=== PATIENT | female | born 1995 | race Caucasian/White ===

== ENCOUNTER 2016-06-12 16:34 | Emergency (ER) | payer SELFPAY ==
[2016-06-12 18:04] VITALS: BP 135/67
--- NOTE | 2016-06-12 18:22 | UC ---
Throat Pain/Nasal Fernando HPI - HPI Summary HPI Summary: For about a week has been waking up with ST in the middle of the night, then it feels ok during the day. Describes discomfort as scratchy and dry, like she needs a drink. Came in today because pain did not go away during the day. Denies fever, cough, or mucus production. Has pain in mid/upper back with deep breaths. - History of Current Complaint Chief Complaint: UCRespiratory Stated Complaint: SORE THROAT Time Seen by Provider: 06/12/16 18:06 Hx Obtained From: Patient Hx Last Menstrual Period: 05/23 ?: No Onset/Duration: Gradual Onset, Lasting Days Severity: Mild Cough: None Associated Signs & Symptoms: Negative: Fever, Vomiting, Rash - Allergies/Home Medications Allergies/Adverse Reactions: Allergies Allergy/AdvReac Type Severity Reaction Status Date / Time No Known Allergies Allergy Verified 06/12/16 17:58 Home Medications: Home Medications Bcp 1 tab PO DAILY 06/12/16 [History] PMH/Surg Hx/FS Hx/Imm Hx Cardiovascular History Of: Denies: Cardiac Disorders, Hypertension, Deep Vein Thrombosis, Bleeding Disorders Respiratory History Of: Reports: Asthma GI/ History Of: Denies: Gastroesophageal Reflux, Ulcer, Kidney Stones Psychological History Of: Denies: Anxiety, Depression - Surgical History Surgical History: None - Family History Known Family History: Positive: Hypertension, Diabetes - Social History Lives: With Family Alcohol Use: None Substance Use Type: None Smoking Status (MU): Heavy Every Day Tobacco Smoker Type: Cigarettes Amount Used/How Often: 1/2 pack daily Have You Smoked in the Last Year: Yes When Did the Patient Quit Smoking/Using Tobacco: 07/2015 Household Exposure Type: Cigarettes - Immunization History Most Recent Influenza Vaccination: [id number] Vaccination Up to Date: Yes Review of Systems Constitutional: Negative Skin: Negative Eyes: Negative ENT: Sore Throat Respiratory: Negative Cardiovascular: Negative Gastrointestinal: Negative Genitourinary: Negative Motor: Negative Neurovascular: Negative Musculoskeletal: Negative Neurological: Negative Psychological: Negative All Other Systems Reviewed And Are Negative: Yes Physical Exam Triage Information Reviewed: Yes Appearance: Well-Appearing, No Pain Distress, Well-Nourished Vital Signs: Initial Vital Signs Temp 97.7 F 06/12/16 17:59 Pulse 89 06/12/16 17:59 Resp 16 06/12/16 17:59 BP 135/67 06/12/16 17:59 Pulse Ox 100 06/12/16 17:59 Vital Signs Reviewed: Yes Eye Exam: Normal Eyes: Positive: Conjunctiva Clear ENT Exam: Normal ENT: Positive: Normal ENT inspection, Hearing grossly normal, Pharynx normal, TMs normal Dental Exam: Normal Neck exam: Normal Neck: Positive: Supple, Nontender, No Lymphadenopathy Respiratory Exam: Normal Respiratory: Positive: Chest non-tender, Lungs clear, Normal breath sounds, No respiratory distress, No accessory muscle use Cardiovascular Exam: Normal Cardiovascular: Positive: RRR, No Murmur Musculoskeletal Exam: Normal Neurological Exam: Normal Psychological Exam: Normal Skin Exam: Normal Throat Pain/Nasal Course/Dx - Differential Dx/Diagnosis Provider Diagnoses: pharyngitis Discharge - Discharge Plan Condition: Stable Disposition: HOME Patient Education Materials: Pharyngitis (ED) Referrals: Constance Goetz PA [Primary Care Provider] - If Needed Additional Instructions: As we discussed, I suspect your back pain is muscular. Try taking ibuprofen before bed. The sore throat should go away with time, but it can take 2 weeks or more. Come back or see your primary care provider if you have severe or worsening symptoms.
== END 2016-06-12 18:31 | disposition home or self-care (01) ==
LOC: UCCORT 16:34
DX: J02.9 Acute pharyngitis, unspecified (principal); F17.210 Nicotine dependence, cigarettes, uncomplicated
CPT/HCPCS: 87651; 99211; G0463

== ENCOUNTER 2017-02-23 12:41 | Emergency (ER) | payer OTHER ==
[2017-02-23 13:04] VITALS: BP 124/67
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
== END 2017-02-23 13:46 | disposition short-term general hospital (02) ==
LOC: UCCORT 12:41
DX: T76.21XA Adult sexual abuse, suspected, initial encounter (principal); X58.XXXA Exposure to other specified factors, initial encounter; Y92.9 Unspecified place or not applicable; F17.210 Nicotine dependence, cigarettes, uncomplicated
CPT/HCPCS: 99212; G0463

== ENCOUNTER → 2019-02-12 13:55 | Emergency (ER) | payer SELFPAY | END | disposition home or self-care (01) | LOC: OHCORT 13:55 | DX: Z02.1 Encounter for pre-employment examination (principal) ==